=== PATIENT | female | born 1980 | race American Indian/Alaskan Native ===

== ENCOUNTER 2019-06-28 10:58 | Inpatient (IN) | payer BC, MEDICAID, OTHER ==
[2019-06-28] MEDS ORDERED: SODIUM CHLORIDE 0.9% 1000 ML 1,000 ML IV ONE ×2 (11:21)
[2019-06-28] MEDS ORDERED: SODIUM CHLORIDE 0.9% 1000 ML IV SOLN IV ONE (11:22)
--- NOTE | 2019-06-28 11:40 | Emergency Department Report ---
HPI - General Chief Complaint: Skin/Abscess/Foreign Body Time Seen by Provider: 06/28/19 11:21 - HPI HPI: Room 20 The patient is a 39-year-old female present with a chief complaint of left leg infection. The patient states she noticed a blister on her left thigh 3 days ago. The patient states she noticed the area of redness began to swell and she exhibited difficulty walking. The following day she contacted her insurance company and sent them a picture of her leg. She states she was diagnosed with a "staph infection" and given a prescription for an antibiotic which begins with an S (Bactrim DS?). The patient states she took the medication but has not improved. The patient states her pain worsened when she attempted to ambulate she began to feel nauseous and dizzy prompting her to go to an urgent care facility today. At the urgent care facility the patient was found to be hypotensive and tachycardic, was given Rocephin and transferred to this ED. ED Past Medical Hx - Past Medical History Previous Medical History?: No - Surgical History Past Surgical History?: Yes Additional Surgical History: - Family History Family history: no significant - Social History Smoking Status: Never Smoker Substance Use Type: None (Denies illicit drug use), Alcohol (Occasional) - Medications Home Medications: Home Medications Medication Instructions Recorded Confirmed Last Taken Type Ibuprofen [Motrin] 800 mg PO TID #40 tablet 02/20/13 01/28/14 Unknown Rx methOCARBAMOL [Robaxin] 500 mg PO BID #30 tab 02/20/13 01/28/14 Unknown Rx traMADoL [Ultram 50 MG tab] 50 mg PO Q6HR PRN #20 tablet 02/20/13 01/28/14 Unknown Rx Ferrous Sulfate [Feosol 325 MG tab] 325 mg PO TID #90 tablet 01/28/14 Unknown Rx Ibuprofen [Motrin 800 MG tab] 800 mg PO Q8H PRN #90 tablet 01/28/14 Unknown Rx Vits96/Iron Fum/Folic 1 tab PO DAILY 01/28/14 01/28/14 01/27/14 20:00 History [ Tablet] 1 tab Valacyclovir HCl [Valacyclovir] 500 mg PO DAILY 01/28/14 01/28/14 01/27/14 20:00 History 500 mg oxyCODONE /ACETAMINOPHEN [Percocet 1 tab PO Q6HR PRN #30 tablet 01/28/14 Unknown Rx 5/325 mg] ED Review of Systems ROS: Stated complaint: SEPSIS Other details as noted in HPI Constitutional: weakness Eyes: denies: eye pain ENT: denies: throat pain Respiratory: no symptoms reported Cardiovascular: denies: chest pain Endocrine: no symptoms reported Gastrointestinal: denies: abdominal pain Musculoskeletal: myalgia Skin: rash, change in color Neurological: denies: headache Physical Exam - Physical Exam Vital Signs: Vital Signs 06/28/19 06/28/19 11:01 11:10 Temperature 97.8 F Pulse Rate 114 H Respiratory 18 18 Rate Blood Pressure 91/35 O2 Sat by Pulse 100 Oximetry Vital Signs 06/28/19 06/28/19 06/28/19 11:01 11:10 11:12 Temperature 97.8 F Pulse Rate 114 H Respiratory 18 18 14 Rate Blood Pressure 91/35 O2 Sat by Pulse 100 Oximetry 06/28/19 06/28/19 06/28/19 11:31 11:45 12:00 Temperature Pulse Rate 117 H 109 H 108 H Respiratory 18 12 21 Rate Blood Pressure 89/49 89/49 96/56 O2 Sat by Pulse 100 100 Oximetry 06/28/19 06/28/19 12:15 12:30 Temperature Pulse Rate 108 H 109 H Respiratory 18 20 Rate Blood Pressure 94/50 111/57 O2 Sat by Pulse 100 100 Oximetry Physical Exam: GENERAL: The patient is well-developed well-nourished female lying on stretcher not appearing to be in acute distress. [] HEENT: Normocephalic. Atraumatic. Extraocular motions are intact. Patient has moist mucous membranes. NECK: Supple. Trachea midline CHEST/LUNGS: Clear to auscultation. There is no respiratory distress noted. HEART/CARDIOVASCULAR: Regular. There is tachycardia. There is no gallop rub o r murmur. ABDOMEN: Abdomen is soft, nontender. Patient has normal bowel sounds. There is no abdominal distention. SKIN: There is a region of erythema/cellulitis encompassing the entire anterior aspect of the left thigh with the longest diameter of approximately 30 cm. There is a central blister which appears ruptured and is leaking serous fluid. No purulent discharge appreciated. Mild induration but no fluctuance. There is an approximately tennis ball size circular region of erythema to the right lateral thigh, no appreciable fluctuance or induration NEURO: The patient is awake, alert, and oriented. The patient is cooperative. The patient has normal speech MUSCULOSKELETAL: There is no evidence of acute injury. ED Course Vital Signs 06/28/19 06/28/19 11:01 11:10 Temperature 97.8 F Pulse Rate 114 H Respiratory 18 18 Rate Blood Pressure 91/35 O2 Sat by Pulse 100 Oximetry ED Medical Decision Making - Lab Data Result diagrams: 06/28/19 11:42 06/28/19 11:42 Laboratory Tests 06/28/19 06/28/19 06/28/19 11:42 11:42 11:42 WBC 15.0 H RBC 3.86 Hgb 12.2 Hct 36.3 MCV 94 MCH 32 MCHC 34 RDW 13.1 L Plt Count 188 Seg Neutrophils % Precision Lens Polisher Sodium 136 L Potassium 3.3 L Chloride 99.3 Carbon Dioxide 17 L Anion Gap 23 BUN 24 H Creatinine 2.6 H Estimated GFR 25 BUN/Creatinine Ratio 9 Glucose 117 H Lactic Acid 5.20 H* Calcium 7.7 L Total Bilirubin 0.80 AST 7 ALT 8 Alkaline Phosphatase 70 Total Protein 6.0 L Albumin 2.6 L Albumin/Globulin Ratio 0.8 HCG, Qual 06/28/19 11:42 WBC RBC Hgb Hct MCV MCH MCHC RDW Plt Count Seg Neutrophils % Sodium Potassium Chloride Carbon Dioxide Anion Gap BUN Creatinine Estimated GFR BUN/Creatinine Ratio Glucose Lactic Acid Calcium Total Bilirubin AST ALT Alkaline Phosphatase Total Protein Albumin Albumin/Globulin Ratio HCG, Qual Negative - EKG Data -: EKG Interpreted by Ks EKG shows normal: sinus rhythm Rate: normal - EKG Data When compared to previous EKG there are: previous EKG unavailable Interpretation: other (No ischemic changes seen) - Differential Diagnosis Cellulitis, abscess, sepsis Critical care attestation.: If time is entered above; I have spent that time in minutes in the direct care of this critically ill patient, excluding procedure time. ED Disposition Clinical Impression: Cellulitis of left thigh, Sepsis, Cellulitis of right hip, Failure of outpatient treatment, Lactic acidosis, Leukocytosis, Renal insufficiency Disposition: OP ADMIT IP TO THIS HOSP Is pt being admited?: Yes Does the pt Need Aspirin: Yes Condition: Serious Time of Disposition: 13:08 (Hospitalist paged (Dr Puckett))
[2019-06-28] MEDS ORDERED: VANCOMYCIN 1,000 MG in SODIUM CHLORIDE 0.9% 500 ML 500 ML IV ONE (12:00)
[2019-06-28 12:06] LABS: Hematocrit 36.3 % (30.3-42.9); Hemoglobin 12.2 gm/dl (10.1-14.3); Mean Corpuscular HGB Conc 34 % (30-34); Mean Corpuscular Volume 94 fl (79-97); Platelet Count 188 K/mm3 (140-440); Red Blood Count 3.86 M/mm3 (3.65-5.03); Red Cell Distribution Width 13.1 % (13.2-15.2)
[2019-06-28 12:28] LABS: Albumin 2.6 g/dL (3.9-5); Calcium 7.7 mg/dL (8.4-10.2)
[2019-06-28 13:11] LABS: Band Neutrophils # (Manual) 1.5 K/mm3; Basophils % (Manual) 0 % (0.0-1.8); Eosinophils % (Manual) 0 % (0.0-4.3); Total Cells Counted 100
[2019-06-28 13:12] LABS: Platelet Estimate Consistent w Auto; RBC Morphology Normal; Toxic Vacuolation 1+
[2019-06-28] MEDS ORDERED: traMADol 50 MG TAB PO ONE (13:13)
[2019-06-28 15:55] LABS: Bacteria,Urine 1+ /HPF (Negative); Bilirubin,Urine NEG (Negative); Blood,Urine MOD (Negative); Color,Urine Amber (Yellow); Hyaline Casts,Urine 5 /LPF; Mucus,Urine FEW /HPF
[2019-06-28] MEDS ORDERED: ACETAMINOPHEN 325 MG TAB PO PRN (23:01)
[2019-06-29] MEDS: AMPICILLIN/SULBACTA 3GM/100ML 3 GM/100 ML BAG IV SCH ×5 (00:55→23:19)
[2019-06-29] MEDS: SODIUM CHLORIDE 0.9% 1000 ML 1,000 ML IV SCH (00:55)
[2019-06-29 05:44] LABS: Hematocrit 34.5 % (30.3-42.9); Hemoglobin 11.4 gm/dl (10.1-14.3); Mean Corpuscular HGB Conc 33 % (30-34); Mean Corpuscular Volume 93 fl (79-97); Platelet Count 230 K/mm3 (140-440); Red Blood Count 3.72 M/mm3 (3.65-5.03); Red Cell Distribution Width 13.1 % (13.2-15.2)
[2019-06-29 06:15] LABS: Albumin 2.6 g/dL (3.9-5); Calcium 7.6 mg/dL (8.4-10.2)
[2019-06-29] MEDS ORDERED: LACTATED RINGERS 1,000 ML IV ONE (06:32)
[2019-06-29 06:51] LABS: Anisocytosis 1+; Band Neutrophils # (Manual) 0.1 K/mm3; Basophils % (Manual) 0 % (0.0-1.8); Total Cells Counted 100
[2019-06-29 06:52] LABS: Platelet Estimate Consistent w Auto
--- NOTE | 2019-06-29 09:48 | Event Note ---
Date: 06/28/19 Left Groin Abscess/Cellulitis See H/p in reports
[2019-06-29] MEDS: FAMOTIDINE 20 MG TAB PO SCH ×2 (09:53→21:38)
[2019-06-29] MEDS ORDERED: VANCOMYCIN PHARMACY TO DOSE IV SCH (10:00)
--- NOTE | 2019-06-29 10:24 | Consultation ---
History of Present Illness Consult date: 06/29/19 Reason for consult: wound care Requesting physician: OSMANI SANTANA Chief complaint: left groin swelling - History of present illness History of present illness: 39yo healthy female presented to the ED with progressively worsening swelling and pain in the left groin since last Tuesday. Reports that it was initially a small blister that grew in size. A few days later, she developed another swelling on the right lateral hip. Pt was admitted for a left groin infection and General Surgery was consulted. Pt reports that she is feeling better now and the redness is better. The wound is draining on the left. She had a full breakfast a little while ago. She was not told that she was ordered to be NPO this morning. No F/C/N/V now. Never had anything like this before. Denies procedures, trauma, prior infections in that area. Was out recently in her garden. Past History Past Medical History: No medical history Past Surgical History: Social history: other (works as [employer]). denies: smoking, alcohol abuse (occasional use), prescription drug abuse, IV drug use Family history: no significant family history Medications and Allergies Allergies Allergy/AdvReac Type Severity Reaction Status Date / Time No Known Allergies Allergy Unverified 02/20/13 17:23 Home Medications Medication Instructions Recorded Confirmed Last Taken Type traMADoL [Ultram 50 MG tab] 50 mg PO Q6HR PRN #20 tablet 02/20/13 06/28/19 06/28/19 Rx Sulfamethoxazole/Trimethoprim 1 each PO BID 06/28/19 06/28/19 06/28/19 History [Sulfamethoxazole-Tmp Ds Tablet] Active Meds: Active Medications Acetaminophen (Tylenol) 650 mg PO Q4H PRN PRN Reason: Pain MILD(1-3)/Fever >100.5/BERTRAND Famotidine (Pepcid) 20 mg PO BID PETE Last Admin: 06/29/19 09:53 Dose: 20 mg Documented by: Hydromorphone HCl (Dilaudid) 0.5 mg IV Q3H PRN PRN Reason: Pain , Severe (7-10) Sodium Chloride (Nacl 0.9% 1000 Ml) 1,000 mls @ 150 mls/hr IV DIRECT PETE Last Admin: 06/29/19 00:55 Dose: 75 mls/hr Documented by: Ampicillin Sodium/Sulbactam Sodium (Unasyn/Ns 3 Gm/100 Ml) 3 gm in 100 mls @ 100 mls/hr IV Q6HR [facility]; Protocol Last Admin: 06/29/19 05:19 Dose: 100 mls/hr Documented by: Vancomycin HCl 1,250 mg/ (Sodium Chloride) 275 mls @ 166.667 mls/hr IV Q24HR [facility] Ondansetron HCl (Zofran) 4 mg IV Q8H PRN PRN Reason: Nausea And Vomiting Oxycodone/Acetaminophen (Percocet 5/325) 1 tab PO Q6H PRN PRN Reason: Pain, Moderate (4-6) Sodium Chloride (Sodium Chloride Flush Syringe 10 Ml) 10 ml IV BID [facility] Last Admin: 06/29/19 00:55 Dose: 10 ml Documented by: Sodium Chloride (Sodium Chloride Flush Syringe 10 Ml) 10 ml IV PRN PRN PRN Reason: LINE FLUSH Review of Systems - Constitutional weakness, no fever, no chills, no chronic pain - EENT Ears, nose, mouth and throat: vertigo - Cardiovascular no chest pain, no shortness of breath - Respiratory no cough - Gastrointestinal nausea, no vomiting - Genitourinary Genitourinary: no dysuria - Muskuloskeletal no low back pain left: hip pain, hip swelling - Integumentary redness, wounds, boils Exam Vital Signs Temp Pulse Resp BP Pulse Ox 97.8 F 114 H 18 91/35 100 06/28/19 11:01 06/28/19 11:01 06/28/19 11:01 06/28/19 11:01 06/28/19 11:01 - General physical appearance Positive: well developed, well nourished, no distress, no pain - Eyes Positive: normal occular movement - Respiratory Positive: normal expansion, normal respiratory effort, clear to auscultation - Cardiovascular Rhythm: regular - Abdomen Abdomen: Present: soft - Integumentary other (large area of diffuse induration with open wound draining purulent fluid in left groin. Mild tenderness. Rest of left leg beyond mid thigh not involved. No crepitus. Induration noted on right lateral hip as well. ) - Neurologic Neurologic: alert and oriented to time, place and person, motor strength and sensation are grossly intact - Psychiatric Psychiatric: appropriate mood/affect, intact judgment & insight, cooperative Results - Labs 06/29/19 04:20 06/29/19 04:20 Abnormal lab results 06/28/19 06/28/19 06/28/19 Range/Units 11:42 11:42 11:42 WBC 15.0 H (4.5-11.0) K/mm3 RDW 13.1 L (13.2-15.2) % Seg Neuts % (Manual) 84.0 H (40.0-70.0) % Lymphocytes % (Manual) 4.0 L (13.4-35.0) % Seg Neutrophils # Man 12.6 H (1.8-7.7) K/mm3 Lymphocytes # (Manual) 0.6 L (1.2-5.4) K/mm3 Sodium 136 L (137-145) mmol/L Potassium 3.3 L (3.6-5.0) mmol/L Carbon Dioxide 17 L (22-30) mmol/L BUN 24 H (7-17) mg/dL Creatinine 2.6 H (0.7-1.2) mg/dL Glucose 117 H (65-100) mg/dL Lactic Acid 5.20 H* (0.7-2.0) mmol/L Calcium 7.7 L (8.4-10.2) mg/dL Total Protein 6.0 L (6.3-8.2) g/dL Albumin 2.6 L (3.9-5) g/dL Urine WBC (Auto) (0.0-6.0) /HPF 06/28/19 06/28/19 06/28/19 Range/Units 12:59 14:32 15:25 WBC (4.5-11.0) K/mm3 RDW (13.2-15.2) % Seg Neuts % (Manual) (40.0-70.0) % Lymphocytes % (Manual) (13.4-35.0) % Seg Neutrophils # Man (1.8-7.7) K/mm3 Lymphocytes # (Manual) (1.2-5.4) K/mm3 Sodium (137-145) mmol/L Potassium (3.6-5.0) mmol/L Carbon Dioxide (22-30) mmol/L BUN (7-17) mg/dL Creatinine (0.7-1.2) mg/dL Glucose (65-100) mg/dL Lactic Acid 4.50 H* 2.70 H* (0.7-2.0) mmol/L Calcium (8.4-10.2) mg/dL Total Protein (6.3-8.2) g/dL Albumin (3.9-5) g/dL Urine WBC (Auto) 35.0 H (0.0-6.0) /HPF 06/28/19 06/29/19 06/29/19 Range/Units 15:43 04:20 04:20 WBC 14.0 H (4.5-11.0) K/mm3 RDW 13.1 L (13.2-15.2) % Seg Neuts % (Manual) 91.0 H (40.0-70.0) % Lymphocytes % (Manual) 4.0 L (13.4-35.0) % Seg Neutrophils # Man 12.7 H (1.8-7.7) K/mm3 Lymphocytes # (Manual) 0.6 L (1.2-5.4) K/mm3 Sodium (137-145) mmol/L Potassium (3.6-5.0) mmol/L Carbon Dioxide 20 L (22-30) mmol/L BUN 18 H (7-17) mg/dL Creatinine 1.3 H (0.7-1.2) mg/dL Glucose 110 H (65-100) mg/dL Lactic Acid 3.00 H* (0.7-2.0) mmol/L Calcium 7.6 L (8.4-10.2) mg/dL Total Protein 5.6 L (6.3-8.2) g/dL Albumin 2.6 L (3.9-5) g/dL Urine WBC (Auto) (0.0-6.0) /HPF Diabetes panel 06/28/19 06/28/19 06/29/19 Range/Units 11:42 Unknown 04:20 Sodium 136 L 137 (137-145) mmol/L Potassium 3.3 L 3.6 (3.6-5.0) mmol/L Chloride 99.3 104.3 (98-107) mmol/L Carbon Dioxide 17 L 20 L (22-30) mmol/L BUN 24 H 18 H (7-17) mg/dL Creatinine 2.6 H 1.3 H (0.7-1.2) mg/dL Glucose 117 H 110 H (65-100) mg/dL Hemoglobin A1c 5.2 (4-6) % Calcium 7.7 L 7.6 L (8.4-10.2) mg/dL AST 7 11 (5-40) units/L ALT 8 10 (7-56) units/L Alkaline Phosphatase 70 69 (35-129) units/L Total Protein 6.0 L 5.6 L (6.3-8.2) g/dL Albumin 2.6 L 2.6 L (3.9-5) g/dL Calcium panel 06/28/19 06/29/19 Range/Units 11:42 04:20 Calcium 7.7 L 7.6 L (8.4-10.2) mg/dL Albumin 2.6 L 2.6 L (3.9-5) g/dL Pituitary panel 06/28/19 06/29/19 Range/Units 11:42 04:20 Sodium 136 L 137 (137-145) mmol/L Potassium 3.3 L 3.6 (3.6-5.0) mmol/L Chloride 99.3 104.3 (98-107) mmol/L Carbon Dioxide 17 L 20 L (22-30) mmol/L BUN 24 H 18 H (7-17) mg/dL Creatinine 2.6 H 1.3 H (0.7-1.2) mg/dL Glucose 117 H 110 H (65-100) mg/dL Calcium 7.7 L 7.6 L (8.4-10.2) mg/dL Adrenal panel 06/28/19 06/29/19 Range/Units 11:42 04:20 Sodium 136 L 137 (137-145) mmol/L Potassium 3.3 L 3.6 (3.6-5.0) mmol/L Chloride 99.3 104.3 (98-107) mmol/L Carbon Dioxide 17 L 20 L (22-30) mmol/L BUN 24 H 18 H (7-17) mg/dL Creatinine 2.6 H 1.3 H (0.7-1.2) mg/dL Glucose 117 H 110 H (65-100) mg/dL Calcium 7.7 L 7.6 L (8.4-10.2) mg/dL Total Bilirubin 0.80 0.40 (0.1-1.2) mg/dL AST 7 11 (5-40) units/L ALT 8 10 (7-56) units/L Alkaline Phosphatase 70 69 (35-129) units/L Total Protein 6.0 L 5.6 L (6.3-8.2) g/dL Albumin 2.6 L 2.6 L (3.9-5) g/dL Assessment and Plan - Patient Problems (1) Cellulitis of left thigh Current Visit: Yes Status: Acute Plan to address problem: Pt stable. Clinically feeling better. Probably a little dry. I think she would benefit from I&D of left groin as there is probably a pocket of purulent fluid. As she has already had a full breakfast this morning and she is clinically feeling better, there is no need to johnson her to surgery today and risk aspiration during intubation. Will make her NPO tonight and plan for surgery in the AM. Procedure, risks, benefits discussed. All questions answered. Consent obtained. Please call with questions. Time=40min
--- NOTE | 2019-06-29 10:35 | History and Physical Report ---
CHIEF COMPLAINT: Redness and swelling in the left groin region with some drainage. HISTORY OF PRESENT ILLNESS: A 39-year-old female with no significant past medical history, comes in for redness and swelling in the left inguinal region with serous drainage for the last one day. The patient has redness and pain. Pain is about 7 on a scale of 1-10. No fever or chills. No exposure to coronavirus infection. The patient was also found to be hypotensive and tachycardic at the urgent care center and was sent to the Emergency Room. PAST MEDICAL HISTORY: ____. PAST SURGICAL HISTORY: . FAMILY HISTORY: No significant family history. SOCIAL HISTORY: Does not smoke. Occasional alcohol. REVIEW OF SYSTEMS: Significant for left groin pain and redness and difficulty walking because of the left groin pain and swelling. Otherwise, review of systems is negative. PHYSICAL EXAMINATION: GENERAL: Young female, cooperative during examination. VITAL SIGNS: Blood pressure is 99/47, temperature is 99.5, pulse is 101, respirations are 20. HEENT: Unremarkable. Pupils are equal and reactive. NECK: Supple, no lymphadenopathy, no thyromegaly. LUNGS: Clear to auscultation and percussion. Good air entry. CARDIOVASCULAR SYSTEM: S1, S2 heard. No gallop, no murmur, no rub. Apical impulse in left fifth intercostal space and midclavicular line. ABDOMEN: Soft and benign. No hepatosplenomegaly. No guarding, no rigidity. Hernial orifices are normal. EXTREMITIES: Good pedal pulses. No pedal edema. CENTRAL NERVOUS SYSTEM: Alert and oriented x 4, nonfocal exam. SKIN: Normal. Redness and swelling present in the left groin region about 10 cm x 10 cm with serosanguineous discharge. LABORATORY DATA: Significant for white count of 15,000, H and H is normal, platelet count is normal. Electrolytes: Sodium is 136, potassium is 3.3. Lactic acid is 5.2, BUN and creatinine is 25 and 2.6. Urine is negative, shows 35 white cells. ASSESSMENT AND PLAN: 1. Left groin cellulitis/abscess. The patient to be on IV Unasyn and vancomycin. Surgery consult requested for possible incision and drainage. 2. Hypokalemia, supplemented. 3. Acute kidney injury, possibly secondary to vasomotor nephropathy. IV fluids for now. ____ the patient has hypotension, tachycardia and elevated lactic acid. Clinical picture consistent with systemic inflammatory response syndrome. IV fluids and IV antibiotics for now. 4. Hypocalcemia, supplemented. 5. Malnutrition, the patient's albumin is 2.6. Moderate malnutrition. Dietitian consult requested. 6. Urinary tract infection, IV Unasyn should work for the urinary tract infection, pending cultures. 7. Deep venous thrombosis prophylaxis, heparin 5000 q. 12. JOB# [id number] VSM/NTS
[2019-06-29] MEDS ORDERED: VANCOMYCIN 1,250 MG in SODIUM CHLORIDE 0.9% 250ML 250 ML IV SCH (11:00)
--- NOTE | 2019-06-29 14:55 | Anesthesia Consultation ---
Anesthesia Consult and Med Hx - Airway Anesthetic Teeth Evaluation: Good ROM Head & Neck: Adequate Mental/Hyoid Distance: Adequate Mallampati Class: Class II Intubation Access Assessment: Probably Good - Pre-Operative Health Status ASA Pre-Surgery Classification: ASA1 Proposed Anesthetic Plan: General - Pulmonary Hx Smoking: No Hx Asthma: No Hx Respiratory Symptoms: No SOB: No COPD: No Home Oxygen Therapy: No Hx Pneumonia: No Hx Sleep Apnea: No - Cardiovascular System Hx Hypertension: No Hx Coronary Artery Disease: No Hx Heart Attack/AMI: No Hx Angina: No Hx Percutaneous Transluminal Coronary Angioplasty (PTCA): No Hx Cardia Arrhythmia: No Hx Pacemaker: No Hx Internal Defibrillator: No Hx Valvular Heart Disease: No Hx Heart Murmur: No Hx Peripheral Vascular Disease: No - Central Nervous System Hx Neuromuscular Disorder: No Hx Seizures: No CVA: No Hx Back Pain: No Hx Psychiatric Problems: No - Gastrointestinal Hx Ulcer: No Hx Gastroesophageal Reflux Disease: No - Endocrine Hx Renal Disease: No Hx End Stage Renal Disease: No Hx Cirrhosis: No Hx Liver Disease: No Hx Insulin Dependent Diabetes: No Hx Non-Insulin Dependent Diabetes: No Hx Thyroid Disease: No Hx Hypothyroidism: No Hx Hyperthyroidism: No - Hematic Hx Anemia: No Hx Sickle Cell Disease: No - Other Systems Hx Alcohol Use: No Hx Substance Use: No Hx Cancer: No Hx Obesity: No
[2019-06-29] MEDS: oxyCODONE /ACETAMINOPHEN 5-325MG TAB PO PRN (20:12)
[2019-06-29] MEDS ORDERED: ZOLPIDEM 5 MG TAB PO PRN (22:40)
[2019-06-30 04:30] LABS: Hematocrit 30.4 % (30.3-42.9); Hemoglobin 10.2 gm/dl (10.1-14.3); Mean Corpuscular HGB Conc 34 % (30-34); Mean Corpuscular Volume 92 fl (79-97); Platelet Count 270 K/mm3 (140-440); Red Blood Count 3.28 M/mm3 (3.65-5.03)
[2019-06-30 04:54] LABS: BUN/Creatinine Ratio 12; Blood Urea Nitrogen 12 mg/dL (7-17); Calcium 7.8 mg/dL (8.4-10.2); Hemolysis Index 9
[2019-06-30] MEDS: AMPICILLIN/SULBACTA 3GM/100ML 3 GM/100 ML BAG IV SCH ×3 (06:13→17:30)
[2019-06-30 06:18] LABS: Band Neutrophils # (Manual) 0.4 K/mm3; Basophils % (Manual) 0 % (0.0-1.8); Hypochromasia 1+; Platelet Estimate Consistent w Auto; Total Cells Counted 100
[2019-06-30] MEDS: FAMOTIDINE 20 MG TAB PO SCH ×2 (10:14→21:46)
[2019-06-30] MEDS: SODIUM CHLORIDE 0.9% 1000 ML 1,000 ML IV SCH (10:20)
--- NOTE | 2019-06-30 10:43 | Progress Note ---
Assessment and Plan - Patient Problems (1) Cellulitis of left thigh Current Visit: Yes Status: Acute Plan to address problem: Iv abx and i/d (2) DVT prophylaxis Current Visit: Yes Status: Acute Plan to address problem: OOn Heparin Subjective Date of service: 06/29/19 Principal diagnosis: Lt Groin abscess Interval history: For I/d tomorrow Cont IV abx Objective - Constitutional Vitals: Vital Signs - 12hr 06/30/19 06/30/19 06/30/19 02:29 04:00 07:36 Temperature 98.4 F 98.4 F Pulse Rate 94 H 90 Pulse Rate [ Right Brachial] Respiratory 18 20 Rate Respiratory 18 Rate [Left Thigh] Blood Pressure 103/47 105/57 O2 Sat by Pulse 99 99 Oximetry 06/30/19 08:18 Temperature Pulse Rate Pulse Rate [ 112 H Right Brachial] Respiratory 18 Rate Respiratory Rate [Left Thigh] Blood Pressure O2 Sat by Pulse 98 Oximetry General appearance: Present: no acute distress, well-nourished - EENT Eyes: PERRL, EOM intact ENT: hearing intact, clear oral mucosa Ears: bilateral: normal - Neck Neck: supple, normal ROM - Respiratory Respiratory effort: normal Respiratory: bilateral: CTA - Breasts Breasts: normal - Cardiovascular Heart rate: 78 Rhythm: regular Heart Sounds: Present: S1 & S2. Absent: gallop, rub Extremities: pulses intact, No edema, normal color, Full ROM, abnormal (Lt Groin Erythema and erythema) - Gastrointestinal General gastrointestinal: Present: soft, non-tender, non-distended, normal bowel sounds - Genitourinary Female genitourinary: normal - Integumentary Integumentary: clear, warm, dry - Musculoskeletal Musculoskeletal: 1, strength equal bilaterally - Neurologic Neurologic: moves all extremities - Psychiatric Psychiatric: memory intact, appropriate mood/affect, intact judgment & insight - Labs CBC & Chem 7: 06/30/19 04:10 06/30/19 04:10 Labs: Abnormal lab results 06/30/19 06/30/19 Range/Units 04:10 04:10 WBC 12.2 H (4.5-11.0) K/mm3 RBC 3.28 L (3.65-5.03) M/mm3 RDW 13.0 L (13.2-15.2) % Seg Neuts % (Manual) 81.0 H (40.0-70.0) % Lymphocytes % (Manual) 10.0 L (13.4-35.0) % Seg Neutrophils # Man 9.9 H (1.8-7.7) K/mm3 Carbon Dioxide 20 L (22-30) mmol/L Glucose 102 H (65-100) mg/dL Calcium 7.8 L (8.4-10.2) mg/dL
[2019-06-30] MEDS: VANCOMYCIN 1,250 MG in SODIUM CHLORIDE 0.9% 250ML 250 ML IV SCH ×2 (10:47→21:54)
[2019-06-30] MEDS ORDERED: propofoL 200 MG/20 ML VIAL IV ONE (11:00)
[2019-06-30] MEDS ORDERED: ONDANSETRON 4 MG/2 ML INJ ONE (11:00)
[2019-06-30] MEDS ORDERED: GLYCOPYRROLATE 0.4 MG/2 ML INJ ONE (11:00)
[2019-06-30] MEDS ORDERED: LIDOCAINE MPF (2%) 20 MG/1 ML VIAL 5 ML ONE (11:00)
[2019-06-30] MEDS ORDERED: PHENYLEPHRINE/NS 1,000 MCG/10 ML SYRINGE (OR USE) IV ONE (11:00)
[2019-06-30] MEDS ORDERED: SUCCINYLCHOLINE CHLORIDE 200 MG/10 ML INJ MDV ONE (11:00)
[2019-06-30] MEDS ORDERED: HYDROmorphone 1 MG/1 ML INJ ONE ×3 (11:00→13:06)
[2019-06-30] MEDS ORDERED: MIDAZOLAM 2 MG/2 ML INJ ONE (11:29)
[2019-06-30] MEDS ORDERED: SODIUM HYPOCHLORITE, DAKIN'S 1/2 STRENGTH (0.25%) 473 ML TOPICAL SOLN IR ONE (12:00)
--- NOTE | 2019-06-30 12:32 | Post Operative Note ---
Date of procedure: 06/30/19 (dictation: [id number]) Pre-op diagnosis: LLE infection Post-op diagnosis: other (LLE soft tissue abscess) Findings: large pocket of purulent fluid in subcutaneous space. No extension or involvement of fascia. Procedure: I&D, debridement of left lower extremity abscess IVF 300cc EBL ~100cc Anesthesia: EMILEA Surgeon: WILBERTO PEREZ Estimated blood loss: 50-100ml Pathology: list (culture swabs) Specimen disposition: to lab Condition: stable Disposition: PACU
[2019-06-30] MEDS ORDERED: ONDANSETRON 4 MG/2 ML INJ IV PRN (13:00)
[2019-06-30] MEDS ORDERED: HYDROmorphone 1 MG/1 ML INJ IV PRN (13:00)
[2019-06-30] MEDS: HYDROmorphone 1 MG/1 ML INJ IV PRN (13:08)
[2019-06-30] MEDS ORDERED: SODIUM CHLORIDE 0.9% 1000 ML 1,000 ML ONE (13:31)
[2019-06-30] MEDS: ONDANSETRON 4 MG/2 ML INJ IV PRN (13:44)
--- NOTE | 2019-06-30 13:50 | Operative Report ---
PREOPERATIVE DIAGNOSIS: Left lower extremity infection. POSTOPERATIVE DIAGNOSIS: Left lower extremity soft tissue abscess. ATTENDING PHYSICIAN: Jitendra Benavides MD ANESTHESIA: General. ESTIMATED BLOOD LOSS: Approximately 100 mL. FLUIDS: 300 mL. FINDINGS: Large pocket of purulent fluid in the subcutaneous space. No involvement or extension to the deeper tissues including fascia. Abscess cavity was approximately 28 cm in length, 3 cm deep, and 4-5 cm at its greatest width. SPECIMENS: Culture swabs. DRAINS: Wound VAC. COMPLICATIONS: None. DISPOSITION: Stable, transferred to Recovery Room. INDICATIONS: This is a 39-year-old female who presented with approximately 1-week history of progressively worsening pain and swelling of the left lower extremity. The patient assessed to be need for formal incision, drainage and debridement in the operating room due to the extensive nature of her cellulitis. Risks included but were not limited to infection, bleeding, pain, injury to surrounding structures, possible need for further procedure in the future. Of note, the patient did have some cellulitis on the right hip; however, there was no fluctuant area. We agreed to watch that for now. OPERATIVE NOTE: The patient was brought to the operating room and placed on the table in supine position. After adequate general anesthesia was established, the patient was prepped and draped in usual sterile fashion. Prior to the prepping and draping, I examined the right hip while the patient was asleep. Only erythema and induration were appreciated. There was no clear area of fluctuance. The patient was already on antibiotics. Timeout had been called. I began by probing the opening that she had in the left proximal thigh anteriorly. I was able to find an extension medially, made a small incision over a lacrimal probe so that I can get a finger in. I was able to then identify the entirety of the tract. This was opened up with the electrocautery device. Once I had the whole cavity opened, I thoroughly probed with my finger bluntly in all directions to make sure we had it all completely opened up. There was no involvement of the underlying fascia. I could not see the fascia. This was all in the subcutaneous tissue. It did not extend up into the abdomen. It was restricted in the oblique line in the proximal anterior thigh. This was thoroughly washed out with 4 liters using the pulse lavage system. Hemostasis was achieved with electrocautery. All the debridement was done bluntly (non-excisional). No sharp debridement was necessary as this was all purulent fluid that was here. The cellulitis extended two-thirds down the way of the anterior thigh towards the knee and covered pretty much the anterior half of the thigh. Once the wound was thoroughly washed out, tissue looked much janitor and cleaner, much better. Again, I probed again to make sure there were no other pockets. I did not find anything. Wound VAC was placed. The patient tolerated the procedure well. There were no complications. All counts were correct at the end of the case. JOB# [id number] KENNETH/CHHAYA SAUCEDO
--- NOTE | 2019-06-30 14:44 | Anesthesia Day of Surgery ---
Anesthesia Day of Surgery - Day of Surgery Patient Examined: Yes Patient H&P Reviewed: Yes Patient is NPO: Yes
--- NOTE | 2019-06-30 14:45 | Post Anesthesia Evaluation ---
- Post Anesthesia Evaluation Patient Participated: Yes Airway Patent: Yes Stable Respiratory Function: Yes Nausea/Vomiting: No Temp > 96.8F: Yes Pain Manageable: Yes Adequeate Hydration: Yes Anesthesia Complications: No Block Receding Appropriately: Not Applicable Patient on Ventilator: No
[2019-06-30] MEDS: oxyCODONE /ACETAMINOPHEN 5-325MG TAB PO PRN (21:50)
[2019-07-01] MEDS: AMPICILLIN/SULBACTA 3GM/100ML 3 GM/100 ML BAG IV SCH ×4 (00:19→17:06)
[2019-07-01] MEDS: oxyCODONE /ACETAMINOPHEN 5-325MG TAB PO PRN (03:44)
[2019-07-01] MEDS: VANCOMYCIN 1,250 MG in SODIUM CHLORIDE 0.9% 250ML 250 ML IV SCH ×2 (10:15→22:07)
[2019-07-01] MEDS: FAMOTIDINE 20 MG TAB PO SCH ×2 (10:15→22:07)
--- NOTE | 2019-07-01 11:30 | Progress Note ---
Assessment and Plan - Patient Problems (1) Cellulitis of left thigh Current Visit: Yes Status: Acute Plan to address problem: Iv abx and i/d (2) UTI (urinary tract infection) Current Visit: Yes Status: Acute Qualifiers: Urinary tract infection type: acute cystitis Plan to address problem: Cont Abx (3) SIRS (systemic inflammatory response syndrome) Current Visit: Yes Status: Acute Plan to address problem: High Lactic acid resolved (4) DVT prophylaxis Current Visit: Yes Status: Acute Plan to address problem: OOn Heparin Subjective Date of service: 06/30/19 Principal diagnosis: Lt Groin abscess Interval history: For I/d today--Large pocket of pus -Debrided Cont IV abx Objective - Constitutional Vitals: Vital Signs - 12hr 07/01/19 07/01/19 07/01/19 02:43 03:44 04:44 Temperature 98.8 F Pulse Rate 86 Respiratory 16 18 16 Rate Blood Pressure Blood Pressure 112/56 [Right] O2 Sat by Pulse 100 Oximetry 07/01/19 07/01/19 06:00 07:11 Temperature 98.6 F Pulse Rate 86 84 Respiratory 20 Rate Blood Pressure 107/66 Blood Pressure [Right] O2 Sat by Pulse 97 Oximetry General appearance: Present: no acute distress, well-nourished - EENT Eyes: PERRL, EOM intact ENT: hearing intact, clear oral mucosa Ears: bilateral: normal - Neck Neck: supple, normal ROM - Respiratory Respiratory effort: normal Respiratory: bilateral: CTA - Breasts Breasts: normal - Cardiovascular Heart rate: 78 Rhythm: regular Heart Sounds: Present: S1 & S2. Absent: gallop, rub Extremities: pulses intact, No edema, normal color, Full ROM - Gastrointestinal General gastrointestinal: Present: soft, non-tender, non-distended, normal bowel sounds - Genitourinary Female genitourinary: normal - Integumentary Integumentary: clear, warm, dry - Musculoskeletal Musculoskeletal: 1, strength equal bilaterally - Neurologic Neurologic: moves all extremities - Psychiatric Psychiatric: memory intact, appropriate mood/affect, intact judgment & insight - Labs CBC & Chem 7: 06/30/19 04:10 06/30/19 04:10
--- NOTE | 2019-07-01 12:01 | Progress Note ---
Assessment and Plan - Patient Problems (1) Cellulitis of left thigh Current Visit: Yes Status: Acute Plan to address problem: Pt stable. s/p Left LE I&D with wound vac placement - 06/29 - POD#1. Pt doing much better. Right hip looks better. S. aureus on initial culture report. Recommendations: 1) Cont IV Abx until sens back 2) Cont wound vac. Consult placed for WOCN 3) Needs enrollment into Home Health and wound clinic 4) Monitor right hip Please call with questions. Subjective Date of service: 07/01/19 Patient Reports: Positive: no new complaints, feels better Objective Vital Signs - 12hr 07/01/19 07/01/19 07/01/19 02:43 03:44 04:44 Temperature 98.8 F Pulse Rate 86 Respiratory 16 18 16 Rate Blood Pressure Blood Pressure 112/56 [Right] O2 Sat by Pulse 100 Oximetry 07/01/19 07/01/19 06:00 07:11 Temperature 98.6 F Pulse Rate 86 84 Respiratory 20 Rate Blood Pressure 107/66 Blood Pressure [Right] O2 Sat by Pulse 97 Oximetry - General physical appearance no distress, no pain, other (looks better) - Eyes normal occular movement - Respiratory normal expansion, normal respiratory effort - Integumentary other (Right hip - erythema and tenderness less. Left thigh wound vac in place. erythema is less intense. serosang drainage in canister) - Psychiatric oriented to time, oriented to person, oriented to place, speech is normal, memory intact - Labs 06/30/19 04:10 06/30/19 04:10
[2019-07-01] MEDS: HYDROmorphone 1 MG/1 ML INJ IV PRN ×2 (12:56→20:17)
--- NOTE | 2019-07-01 17:28 | Progress Note ---
Assessment and Plan - Patient Problems (1) Cellulitis of left thigh Current Visit: Yes Status: Acute Plan to address problem: Iv abx and i/d Discharge was antibiotic sensitivities are back to home health IV infusion as needed will be needed. Also wound care. Dictation note thank you (2) UTI (urinary tract infection) Current Visit: Yes Status: Acute Qualifiers: Urinary tract infection type: acute cystitis Plan to address problem: Cont Abx (3) SIRS (systemic inflammatory response syndrome) Current Visit: Yes Status: Acute Plan to address problem: High Lactic acid resolved (4) DVT prophylaxis Current Visit: Yes Status: Acute Plan to address problem: OOn Heparin Subjective Date of service: 07/01/19 Principal diagnosis: Lt Groin abscess Interval history: For I/d yesterday.--Large pocket of pus -Debrided Cont IV abx Continue IV antibiotics till the sensitivities are back Objective - Constitutional Vitals: Vital Signs - 12hr 07/01/19 07/01/19 07/01/19 06:00 07:11 12:21 Temperature 98.6 F 98.5 F Pulse Rate 86 84 82 Respiratory 20 20 Rate Blood Pressure 107/66 119/51 O2 Sat by Pulse 97 99 Oximetry 07/01/19 14:00 Temperature Pulse Rate 82 Respiratory Rate Blood Pressure O2 Sat by Pulse Oximetry General appearance: Present: no acute distress, well-nourished - EENT Eyes: PERRL, EOM intact ENT: hearing intact, clear oral mucosa Ears: bilateral: normal - Neck Neck: supple, normal ROM - Respiratory Respiratory effort: normal Respiratory: bilateral: CTA - Breasts Breasts: normal - Cardiovascular Rhythm: regular Heart Sounds: Present: S1 & S2. Absent: gallop, rub Extremities: pulses intact, No edema, normal color, Full ROM - Gastrointestinal General gastrointestinal: Present: soft, non-tender, non-distended, normal bowel sounds - Genitourinary Female genitourinary: normal - Integumentary Integumentary: clear, warm, dry - Musculoskeletal Musculoskeletal: 1, strength equal bilaterally - Neurologic Neurologic: moves all extremities - Psychiatric Psychiatric: memory intact, appropriate mood/affect, intact judgment & insight - Labs CBC & Chem 7: 06/30/19 04:10 06/30/19 04:10
[2019-07-02] MEDS: AMPICILLIN/SULBACTA 3GM/100ML 3 GM/100 ML BAG IV SCH ×4 (00:42→19:59)
[2019-07-02] MEDS: HYDROmorphone 1 MG/1 ML INJ IV PRN ×2 (04:07→11:33)
[2019-07-02] MEDS: ONDANSETRON 4 MG/2 ML INJ IV PRN ×2 (04:09→16:07)
--- NOTE | 2019-07-02 09:25 | Progress Note ---
Assessment and Plan - Patient Problems (1) Cellulitis of left thigh Current Visit: Yes Status: Acute Plan to address problem: Pt stable. s/p Left LE I&D with wound vac placement - 06/29 - POD#2. Pt doing much better. Right hip looks better. S. aureus on initial culture report. Recommendations: 1) Cont IV Abx until sens back 2) Cont wound vac. Consult placed for WOCN 3) Needs enrollment into Home Health and wound clinic 4) Monitor right hip 5) okay to discharge home from my standpoint once all of the above is arranged. I will follow-up with her in the wound clinic. Please call with questions. Subjective Date of service: 07/02/19 Patient Reports: Positive: no new complaints, feels better, pain is less Objective Vital Signs - 12hr 07/01/19 07/02/19 07/02/19 22:00 02:25 04:07 Temperature 99.5 F Pulse Rate 92 H 87 Respiratory 15 18 Rate Blood Pressure 124/68 O2 Sat by Pulse 98 93 Oximetry 07/02/19 07/02/19 07/02/19 04:37 06:00 07:43 Temperature 98.5 F Pulse Rate 87 71 Respiratory 16 18 Rate Blood Pressure 120/67 O2 Sat by Pulse 96 Oximetry - General physical appearance no distress, no pain, other (looks better) - Respiratory normal expansion, normal respiratory effort - Integumentary other (bilateral thigh erythema improved. Less tender. Wound vac working well) - Psychiatric oriented to time, oriented to person, oriented to place, speech is normal, m sangeeta intact - Labs 06/30/19 04:10 06/30/19 04:10
[2019-07-02] MEDS: oxyCODONE /ACETAMINOPHEN 5-325MG TAB PO PRN ×3 (09:44→22:12)
[2019-07-02] MEDS: FAMOTIDINE 20 MG TAB PO SCH ×2 (10:08→22:11)
[2019-07-02] MEDS: SODIUM CHLORIDE 0.9% 1000 ML 1,000 ML IV SCH (10:11)
[2019-07-02] MEDS: VANCOMYCIN 1,250 MG in SODIUM CHLORIDE 0.9% 250ML 250 ML IV SCH ×2 (10:29→22:11)
--- NOTE | 2019-07-02 12:54 | Progress Note ---
Assessment and Plan /Cellulites and abscess of left thigh cont Iv abx , Cx growing staph aureus s/p i/d on 06/29, surgery following Discharge pending on antibiotic sensitivities home health IV infusion as needed will be ordered. need hh for wound care and wo und vac / UTI (urinary tract infection) Cont Abx /Sepsis, POA due to left thigh cellulitis presented with High Lactic acid, tachycardia and leukocytosis cont abx / DVT prophylaxis OOn Heparin Microbiology 06/30/19 Unknown Leg - Left Surgical Biopsy Culture - Preliminary S. Aureus 06/28/19 Unknown Peripheral/Venous Blood Culture - Preliminary NO GROWTH AFTER 4 DAYS 06/28/19 Unknown Peripheral/Venous Blood Culture - Preliminary NO GROWTH AFTER 4 DAYS 06/28/19 15:25 Urine,Clean Catch Urine Culture - Final NO GROWTH AFTER 48 HOURS Subjective Date of service: 07/02/19 Principal diagnosis: Lt Groin abscess Interval history: Patient seen and examined. Medical records and medication list reviewed. No acute event overnight noted by the RN. Patient denies any chest pain or difficulty breathing. Patient is tolerating diet. Complains of left thigh pain and restricted movement Discussed plan of care at bedside with patient. Objective - Constitutional Vitals: Vital Signs - 12hr 07/02/19 07/02/19 07/02/19 02:25 04:07 04:37 Temperature 99.5 F Pulse Rate 87 Respiratory 15 18 16 Rate Blood Pressure 124/68 O2 Sat by Pulse 93 Oximetry 07/02/19 07/02/19 06:00 07:43 Temperature 98.5 F Pulse Rate 87 71 Respiratory 18 Rate Blood Pressure 120/67 O2 Sat by Pulse 96 Oximetry General appearance: Present: no acute distress, well-nourished - EENT Eyes: PERRL, EOM intact ENT: hearing intact, clear oral mucosa Ears: bilateral: normal - Neck Neck: supple, normal ROM - Respiratory Respiratory effort: normal Respiratory: bilateral: CTA - Cardiovascular Rhythm: regular Heart Sounds: Present: S1 & S2. Absent: gallop, rub Extremities: pulses intact, No edema, normal color, abnormal (Left thigh wound with wound VAC and dressing) - Gastrointestinal General gastrointestinal: Present: soft, non-tender, non-distended, normal bowel sounds - Genitourinary Female genitourinary: normal - Integumentary Integumentary: clear, warm, dry - Musculoskeletal Musculoskeletal: 1, strength equal bilaterally - Neurologic Neurologic: moves all extremities - Psychiatric Psychiatric: memory intact, appropriate mood/affect, intact judgment & insight - Labs CBC & Chem 7: 06/30/19 04:10 06/30/19 04:10
[2019-07-03] MEDS: AMPICILLIN/SULBACTA 3GM/100ML 3 GM/100 ML BAG IV SCH ×2 (00:19→09:40)
[2019-07-03] MEDS: oxyCODONE /ACETAMINOPHEN 5-325MG TAB PO PRN ×3 (04:06→15:47)
[2019-07-03] MEDS: FAMOTIDINE 20 MG TAB PO SCH (09:40)
[2019-07-03] MEDS ORDERED: VANCOMYCIN 1,500 MG in SODIUM CHLORIDE 0.9% 500 ML 500 ML IV SCH (10:00)
[2019-07-03] MEDS: ONDANSETRON 4 MG/2 ML INJ IV PRN (10:10)
--- NOTE | 2019-07-03 11:56 | Consultation ---
History of Present Illness - Reason for Consult Consult date: 07/03/19 - History of Present Illness 39-year-old female no past medical history admitted with a left leg infection. She notes that this began with a blister on the left thigh approximately 3 days prior to admission, and was associated with redness. This then began to swell and affected her gait. She was given an antibiotic of which she is unaware for a staph infection, however this did not improve her symptoms. Her pain began to worsen and her ambulation became more difficult, and she developed nausea and dizziness. She went to urgent care on the day of admission, and was found to be hypotensive and tachycardic and was then transferred to the emergency room. She was taken for an I&D on 06/30/2019 and a large pocket of purulent fluid was found subcutaneous space. This was debrided and purulence was obtained. A wound VAC was placed. Febrile to 102 degrees with a white count of 12 which is improved from 15. She is currently receiving vancomycin. Blood and urine cultures are negative, and surgical cultures from the I&D are positive for MRSA. Imaging personally reviewed: None available for review. Review of Systems: Bold if positive, otherwise negative General: fevers, chills, rigors HEENT: visual disturbance, diplopia, eye pain Respiratory: cough, sputum, hemoptysis, shortness of breath Cardiovascular: chest pain, syncope Gastrointestinal: nausea, vomiting, diarrhea, abdominal pain Genitourinary: dysuria, hematuria, flank pain Musculoskeletal: neck pain, back pain, joint pain, edema Neurologic: headaches, seizures Hematologic: easy bruising or bleeding Endocrine: night sweats, acute weight loss Skin: rash, jaundice, redness Psychiatric: suicidal, homicidal ideation Past History Past Medical History: No medical history Past Surgical History: Social history: other (works as [employer]). denies: smoking, alcohol abuse (occasional use), prescription drug abuse, IV drug use Family history: no significant family history Medications and Allergies Allergies Allergy/AdvReac Type Severity Reaction Status Date / Time No Known Allergies Allergy Unverified 02/20/13 17:23 Home Medications Medication Instructions Recorded Confirmed Last Taken Type traMADoL [Ultram 50 MG tab] 50 mg PO Q6HR PRN #20 tablet 02/20/13 06/28/19 06/28/19 Rx Sulfamethoxazole/Trimethoprim 1 each PO BID 06/28/19 06/28/19 06/28/19 History [Sulfamethoxazole-Tmp Ds Tablet] Active Meds: Active Medications Acetaminophen (Tylenol) 650 mg PO Q4H PRN PRN Reason: Pain MILD(1-3)/Fever >100.5/BERTRAND Last Admin: 07/01/19 20:18 Dose: 650 mg Documented by: Famotidine (Pepcid) 20 mg PO BID [facility] Last Admin: 07/03/19 09:40 Dose: 20 mg Documented by: Hydromorphone HCl (Dilaudid) 0.5 mg IV Q3H PRN PRN Reason: Pain , Severe (7-10) Last Admin: 07/02/19 11:33 Dose: 0.5 mg Documented by: Sodium Chloride (Nacl 0.9% 1000 Ml) 1,000 mls @ 150 mls/hr IV DIRECT [facility] Last Admin: 07/02/19 10:11 Dose: 75 mls/hr Documented by: Vancomycin HCl 1,500 mg/ (Sodium Chloride) 530 mls @ 333.333 mls/hr IV Q12HR [facility] Last Admin: 07/03/19 11:36 Dose: 333.333 mls/hr Documented by: Ondansetron HCl (Zofran) 4 mg IV Q8H PRN PRN Reason: Nausea And Vomiting Last Admin: 07/03/19 10:10 Dose: 4 mg Documented by: Oxycodone/Acetaminophen (Percocet 5/325) 1 tab PO Q6H PRN PRN Reason: Pain, Moderate (4-6) Last Admin: 07/03/19 10:09 Dose: 1 tab Documented by: Sodium Chloride (Sodium Chloride Flush Syringe 10 Ml) 10 ml IV BID [facility] Last Admin: 07/03/19 09:40 Dose: 10 ml Documented by: Sodium Chloride (Sodium Chloride Flush Syringe 10 Ml) 10 ml IV PRN PRN PRN Reason: LINE FLUSH Zolpidem Tartrate (Ambien) 5 mg PO QHS PRN PRN Reason: Sleep Last Admin: 06/29/19 23:16 Dose: 5 mg Documented by: Physical Examination - Physical Exam Narrative exam: Physical Exam: Constitutional: Alert, cooperative. No acute distress Head, Ears, Nose: Normocephalic, atraumatic. External ears, nose normal Eyes: Conjunctivae/corneas clear. No icterus. No ptosis. Neck: Supple, no meningeal signs Oral: dentition fair, no thrush Cardiovascular: S1, S2 normal. Respiratory: Good air entry, clear to auscultation bilaterally GI: Soft, non-tender; bowel sounds normal. No peritoneal signs. Musculoskeletal: Left thigh I&D wound transverse across upper thigh with wound VAC in place. Left lateral thigh and buttocks resolving induration, mild redness. Skin: No rash or abscess Hem/Lymphatic: No palpable cervical or supraclavicular nodes. No lymphangitis Psych: Mood ok. Affect normal Neurological: Awake, alert, oriented. No gross abnormality - Constitutional Vitals: Vital Signs Temp Pulse Resp BP Pulse Ox 98.9 F 75 18 131/62 95 07/03/19 07:58 07/03/19 07:58 07/03/19 07:58 07/03/19 07:58 07/03/19 07:58 Temperature -Last 24 Hours Temperature 98.9 F Temperature 98.4 F Temperature 98.8 F Temperature 98.3 F Results - Labs CBC & Chem 7: 06/30/19 04:10 06/30/19 04:10 Assessment and Plan Cultures: Blood culture 06/28/2019 no growth to date Urine culture 06/28/2019 no growth to date Wound culture 06/30/2019 MRSA A/P: 39-year-old female no past medical history admitted to the hospital with bilateral leg staph infection. #MRSA abscess: Status post I&D, cultures growing MRSA. No need for home IV antibiotics, plan on discharge with doxycycline. Plan on 7 days of antibiotics given contralateral cellulitis which is resolving. #Cellulitis: Plan as above #GUSTAVO: Resolved. Will give doxycycline instead of Bactrim on discharge due to history of GUSTAVO on admission. Recs: -Continue vancomycin while in-house, goal trough 10-20. Dosed per pharmacy -On discharge would give doxycycline 100 mg every 12 hours until 07/08/2019 -Continue with wound care, as this will be the mainstay of healing appropriately. -Discussed with patient she can follow-up in clinic in 1 to 2 weeks if she feels she has not improved. Thank you for the consult, we will continue to follow. Leticia Kelly MD [facility] M: [phone] O: [phone] F: [phone]
--- NOTE | 2019-07-03 13:00 | Discharge Summary ---
Providers - Providers Date of Admission: 06/28/19 13:12 Date of discharge: 07/03/19 Attending physician: RAJAN COWAN 06/28/19 23:01 Consult to Physician [CONS] Routine Comment: Consulting Provider: WILBERTO PEREZ Physician Instructions: Reason For Exam: Left groin abscess 06/30/19 12:30 Consult to Wound/ET Nurse [CONS] Routine Reason For Exam: wound eval- wound vac. Clinic enrollment 06/30/19 12:31 Consult to Case Management [CONS] Routine Services Needed at Discharge: Wound Vac Home Health Services Notified:: No 07/03/19 08:50 Consult to Physician [CONS] Routine Comment: Consulting Provider: IVANA OJEDA Physician Instructions: Reason For Exam: MRSA wound/cellulitis Primary care physician: CAFE ASSISTANT Hospitalization Condition: Serious Hospital course: 39-year-old female no past medical history admitted with a left leg infection which began with a blister on the left thigh approximately 3 days prior to admission. Her pain began to worsen and her ambulation became more difficult, and she developed nausea and dizziness. She went to urgent care on the day of admission, and was found to be hypotensive and tachycardic and was then transferred to the emergency room. She was taken for an I&D on 06/30/2019 and a large pocket of purulent fluid was found subcutaneous space. This was debrided and purulence was obtained. A wound VAC was placed. She was placed on vancomycin and Unasyn. Blood and urine cultures are negative, and surgical cultures from the I&D are positive for MRSA. ID was consulted and recommended to discharge with doxycycline 100 mg every 12 hours until 07/08/2019. Patient was then discharged home in stable condition with outpatient follow-up and home health for wound care. Discharge diagnosis: /GUSTAVO, vasomotor nephropathy, POA - resolved with IV fluid /Cellulites and abscess of left thigh Cx growing MRSA s/p i/d on 06/29, home health for wound care and wound vac Status post IV Unasyn and vancomycin DC home with doxycycline 100 mg twice daily until July 07 / UTI (urinary tract infection) Treated with antibiotic /Sepsis, POA due to left thigh cellulitis presented with High Lactic acid, tachycardia and leukocytosis Treated with antibiotics Physical exam: Constitutional: Alert, cooperative. No acute distress Head, Ears, Nose: Normocephalic, atraumatic. External ears, nose normal Eyes: Conjunctivae/corneas clear. No icterus. No ptosis. Neck: Supple, no meningeal signs Oral: dentition fair, no thrush Cardiovascular: S1, S2 normal. Respiratory: Good air entry, clear to auscultation bilaterally GI: Soft, non-tender; bowel sounds normal. No peritoneal signs. Musculoskeletal: Left thigh I&D wound transverse across upper thigh with wound VAC in place. Left lateral thigh and buttocks resolving induration, mild redness. Skin: No rash or abscess Hem/Lymphatic: No palpable cervical or supraclavicular nodes. No lymphangitis Psych: Mood ok. Affect normal Neurological: Awake, alert, oriented. No gross abnormality Disposition: [id number]/TX-06 HOME UNDER HOME [facility] Time spent for discharge: 34 minutes Core Measure Documentation - Palliative Care Palliative Care/ Comfort Measures: Not Applicable - Core Measures Any of the following diagnoses?: none Exam - Constitutional Vitals: Temp Pulse Resp BP Pulse Ox 98.9 F 75 18 131/62 95 07/03/19 07:58 07/03/19 07:58 07/03/19 07:58 07/03/19 07:58 07/03/19 07:58 Plan Activity: advance as tolerated Weight Bearing Status: Weight Bear as Tolerated Diet: low fat Wound: per your surgeon's advice, per wound nurse instructions, drain care as instructed Durable Medical Equipment Needed Upon Discharge: other (Wound VAC) Additional Instructions: Follow-up outpatient with Dr. Perez in 1 week Follow up with: [facility] MD JERED [Referring] - 3-5 Days WILBERTO PEREZ MD [Staff Physician] - 7 Days Prescriptions: oxyCODONE /ACETAMINOPHEN [Percocet 5/325 mg] 1 tab PO Q6H PRN #14 tablet PRN Reason: Pain, Moderate (4-6) DOXYCYCLINE Hyclate [Vibramycin CAP] 100 mg PO Q12HR #14 capsule
[2019-07-03 14:02] VITALS: BP 123/67
== END 2019-07-03 08:50 | disposition home health service (06) | DRG 853 ==
LOC: ED 10:58 → 4A 13:12 → 2B-ACE 18:00
PROVIDERS: ADMIT Internal Medicine; ATTEND Internal Medicine
PROC: 0JDP0ZZ Extraction of Left Lower Leg Subcutaneous Tissue and Fascia, Open Approach (ICD-10-PCS; principal; 2019-06-30)
DX: A41.9 Sepsis, unspecified organism (principal); N17.0 Acute kidney failure with tubular necrosis; L03.116 Cellulitis of left lower limb; N39.0 Urinary tract infection, site not specified; L02.416 Cutaneous abscess of left lower limb; L03.115 Cellulitis of right lower limb; E87.2 Acidosis; B95.62 Methicillin resistant Staphylococcus aureus infection as the cause of diseases classified elsewhere; D72.829 Elevated white blood cell count, unspecified
CPT/HCPCS: 36415; 80048; 80053; 80202; 81001; 82140; 83036; 84703; 85007; 85025; 87040; 87076; 87086; 87116; 87186; 87641; 93005; G0378; A6260; J0295; J0330; J1170; J2250; J2370; J2405; J2704; J3370; J7030; J7040; J7050; J7120

== ENCOUNTER 2019-07-12 08:28 | Outpatient (CLI) | payer BC ==
[2019-07-12] MEDS ORDERED: LIDOCAINE (4%) 40 MG/ML TOPICAL SOLN 50 ML BOTTLE TP ONE (09:00)
== END 2019-07-12 08:29 | disposition home or self-care (01) ==
LOC: WOUND 08:28
PROVIDERS: ATTEND Surgery
DX: T81.89XD Other complications of procedures, not elsewhere classified, subsequent encounter (principal); L97.122 Non-pressure chronic ulcer of left thigh with fat layer exposed; F17.210 Nicotine dependence, cigarettes, uncomplicated; Y83.8 Other surgical procedures as the cause of abnormal reaction of the patient, or of later complication, without mention of misadventure at the time of the procedure
CPT/HCPCS: 11042; 11045; 97605; G0463; 99214

== ENCOUNTER 2019-07-16 13:57 | Outpatient (CLI) | payer BC ==
[2019-07-16] MEDS ORDERED: LIDOCAINE (4%) 40 MG/ML TOPICAL SOLN 50 ML BOTTLE TP ONE (14:20)
== END 2019-07-16 13:58 | disposition home or self-care (01) ==
LOC: WOUND 13:57
PROVIDERS: ATTEND Surgery
DX: T81.89XD Other complications of procedures, not elsewhere classified, subsequent encounter (principal); L97.122 Non-pressure chronic ulcer of left thigh with fat layer exposed; F17.210 Nicotine dependence, cigarettes, uncomplicated; Y83.8 Other surgical procedures as the cause of abnormal reaction of the patient, or of later complication, without mention of misadventure at the time of the procedure
CPT/HCPCS: 97605

== ENCOUNTER 2019-07-23 11:30 | Outpatient (CLI) | payer BC ==
[2019-07-23] MEDS ORDERED: LIDOCAINE (4%) 40 MG/ML TOPICAL SOLN 50 ML BOTTLE TP ONE (14:34)
[2019-07-23] MEDS ORDERED: SILVER NITRATE APPLICATOR 1 EA TP ONE (14:47)
== END 2019-07-23 11:31 | disposition home or self-care (01) ==
LOC: WOUND 11:30
PROVIDERS: ATTEND Surgery
DX: T81.89XD Other complications of procedures, not elsewhere classified, subsequent encounter (principal); L97.122 Non-pressure chronic ulcer of left thigh with fat layer exposed; F17.210 Nicotine dependence, cigarettes, uncomplicated; Y83.8 Other surgical procedures as the cause of abnormal reaction of the patient, or of later complication, without mention of misadventure at the time of the procedure

== ENCOUNTER 2019-08-06 14:26 | Outpatient (CLI) | payer BC ==
[2019-08-06] MEDS ORDERED: LIDOCAINE (4%) 40 MG/ML TOPICAL SOLN 50 ML BOTTLE TP ONE (14:29)
[2019-08-06] MEDS ORDERED: SILVER NITRATE APPLICATOR 1 EA TP ONE (14:53)
== END 2019-08-06 14:27 | disposition home or self-care (01) ==
LOC: WOUND 14:26
PROVIDERS: ATTEND Surgery
DX: T81.89XD Other complications of procedures, not elsewhere classified, subsequent encounter (principal); L97.122 Non-pressure chronic ulcer of left thigh with fat layer exposed; F17.210 Nicotine dependence, cigarettes, uncomplicated; Y83.8 Other surgical procedures as the cause of abnormal reaction of the patient, or of later complication, without mention of misadventure at the time of the procedure
CPT/HCPCS: 17250

== ENCOUNTER 2019-09-17 14:22 | Outpatient (CLI) | payer BC | END 2019-09-17 14:23 | disposition home or self-care (01) | LOC: WOUND 14:22 | PROVIDERS: ATTEND Surgery | DX: T81.89XD Other complications of procedures, not elsewhere classified, subsequent encounter (principal); L97.122 Non-pressure chronic ulcer of left thigh with fat layer exposed; F17.210 Nicotine dependence, cigarettes, uncomplicated; Y83.8 Other surgical procedures as the cause of abnormal reaction of the patient, or of later complication, without mention of misadventure at the time of the procedure | CPT/HCPCS: 99213; G0463 ==